=== PATIENT | female | born 1985 | race Caucasian/White ===

== ENCOUNTER 2024-04-14 16:08 | Emergency (ER) | payer BC ==
[~2024-04-14] VITALS: Ht 167.6 cm; Wt 90.9 kg
[2024-04-14 17:33] VITALS: BP 130/70; PULSE 74; RESP 16; TEMP 97.7; O2SAT 99
== END 2024-04-14 17:46 | disposition home or self-care (01) ==
LOC: ER 16:09
DX: S62.525A Nondisplaced fracture of distal phalanx of left thumb, initial encounter for closed fracture (principal); F17.200 Nicotine dependence, unspecified, uncomplicated; X58.XXXA Exposure to other specified factors, initial encounter; Y93.89 Activity, other specified; Y92.89 Other specified places as the place of occurrence of the external cause; Y99.8 Other external cause status
CPT/HCPCS: 11760; 29125; 29260; 73130; 99283